=== PATIENT | female | born 1955 | race Caucasian/White ===

== ENCOUNTER → 2020-08-19 13:07 | Outpatient (CLI) | payer OTHER, SELFPAY ==
--- NOTE | ~2020-08-19 | DEXA_ITS ---
Bone Density Report Name: Kayleen Omalley Age: 65 Sex: Female Ethnicity: White Date of : 1955 Indication: postmenopausal; screening for osteoporosis; height loss; Referring Provider: DARLIN, ZEHRA Study: Bone densitometry was performed. Exam Date: August 19, 2020 Accession number: [id number] Bone Density: Region BMD T-score Z-score Classification AP Spine (L1-L4) 1.286 2.2 3.8 Normal Femoral Neck (Left) 0.756 -0.8 0.6 Normal Total Hip (Left) 0.947 0.0 1.2 Normal Femoral Neck (Right) 0.688 -1.5 0.0 Osteopenia Total Hip (Right) 0.903 -0.3 0.8 Normal Total Hip Mean 0.925 -0.2 1.0 Normal World Health Organization criteria for BMD impression classify patients as: Normal (T-score at or above -1.0), Osteopenia (T-score between -1.0 and -2.5), or Osteoporosis (T-score at or below -2.5). 10-year Fracture Risk(1): Major Osteoporotic Fracture 8.0% Hip Fracture 0.7% Reported Risk Factors: [place] (), Neck BMD=0.688, BMI=31.3 (1) FRAX(R) Version 3.08. Fracture probability calculated for an untreated patient. Fracture probability may be lower if the patient has received treatment. Previous Exams: Region Exam Age BMD T-score BMD Change BMD Change Date g/cm2 vs Baseline vs Previous AP Spine(L1-L4) 08/19/2020 65 1.286 2.2 0.081* -0.028* 08/10/2016 61 1.314 2.4 0.108* 0.062* 07/27/2013 58 1.251 1.9 0.046* 0.046* 04/11/2009 53 1.205 1.4 Total Hip(Left) 08/19/2020 65 0.947 0.0 0.049* -0.046* 08/10/2016 61 0.993 0.4 0.095* 0.011 07/27/2013 58 0.982 0.3 0.083* 0.083* 04/11/2009 53 0.898 -0.4 Total Hip(Right) 08/19/2020 65 0.903 -0.3 0.011 -0.051* 08/10/2016 61 0.954 0.1 0.061* 0.028* 07/27/2013 58 0.926 -0.1 0.034* 0.034* 04/11/2009 53 0.893 -0.4 *Denotes significance at 95% confidence level, LSC for AP Spine = 0.022 g/cm2, LSC for Total Hip = 0.027 g/cm2 Clinical Information Provided by Patient: Has used the following medications: Vitamin D Patient maximum height was 65.5 Menopause Age: 57 No regular weight bearing exercise Drinks caffeinated beverages Onset of menses at age 18 Number of children 1 Impression: The patient has low bone mass, based on the Right Femoral Neck T-score. The pa
--- NOTE | ~2020-08-19 | US_ITS ---
EXAMINATION: US transvaginal DATE: 08/19/2020 14:14 INDICATION: Left ovarian cyst in a postmenopausal patient TECHNIQUE: Multiple endovaginal sonographic images of the pelvis were obtained. COMPARISON: 08/17/2019, 08/12/2017, 08/08/2015 FINDINGS: The uterus measures 4.9 x 2.9 x 3.6 cm. The endometrial complex measures 2 mm. The right ov izabela measures 2.1 x 2 x 2 cm and contains a 1.7 cm simple cyst. The left ovary measures 4.6 x 4.6 x 4. 9 cm and contains a 4.2 cm simple cyst, not significantly changed when compared to multiple prior ult rasound examinations. There is normal vascular flow in the ovaries. There is no free fluid in the pel vis. IMPRESSION: 1. Left ovarian cyst without significant change, likely benign. Given its relative stability, decreas ed frequency of follow-up is sometimes considered. Reviewed, dictated and finalized at location A. FLAW DETECTOR OPERATOR IMPRESSION: 1. Left ovarian cyst without significant change, likely benign. Given its relat jose miguel stability, decreased frequency of follow-up is sometimes considered.
--- NOTE | ~2020-08-19 | MM_ITS ---
EXAMINATION: MM screening sandhya BI w maria victoria HISTORY: Screening mammogram TECHNIQUE: Craniocaudal and mediolateral oblique 3-D tomosynthesis images were obtained and synthetic 2-D images were generated. CAD analysis was submitted and interpreted. COMPARISON: 08/17/2019 bilateral digital screening mammogram 08/29/2018 diagnostic right digital mammogram and complete right breast ultrasound 08/14/2018, 08/12/2017 and 08/10/2016 bilateral digital screening mammogram examinations BREAST PARENCHYMAL COMPOSITION: There are scattered areas of fibroglandular density. FINDINGS: There is a biopsy marker on the right; history of prior benign right breast biopsy. Stable mild fibroglandular asymmetry. There is no evidence of suspicious mass, calcification, or arch itectural distortion to suggest malignancy in either breast. There has been no suspicious interval ch kee. IMPRESSION: 1. No mammographic evidence of malignancy. 2. Recommend routine screening mammography in one year. BI-RADS Category 2: Benign finding(s). Reviewed, dictated and finalized at location A. S AND MARKETING ASSOCIATE
== END ==
PROVIDERS: Visit Provider Nurse Practitioner
DX: Z12.31 Encounter for screening mammogram for malignant neoplasm of breast (principal); Z78.0 Asymptomatic menopausal state; N83.209 Unspecified ovarian cyst, unspecified side; N83.202 Unspecified ovarian cyst, left side; M85.851 Other specified disorders of bone density and structure, right thigh
CPT/HCPCS: 76830; 77063; 77067; 77080

== ENCOUNTER → 2021-08-21 12:39 | Outpatient (CLI) | payer OTHER, SELFPAY ==
--- NOTE | ~2021-08-21 | US_ITS ---
EXAMINATION: US transvaginal DATE: 08/21/2021 13:02 INDICATION: Left ovarian cyst follow-up TECHNIQUE: Multiple endovaginal sonographic images of the pelvis were obtained. COMPARISON: 08/19/2020 FINDINGS: The uterus measures 6.1 x 2.8 x 3.5 cm. The endometrial complex measures 4 mm. The right ov izabela measures 2.2 x 3.3 x 3.2 cm and contains a 2.2 cm simple cyst. The left ovary measures 5.1 x 4.8 x 4.6 cm and contains a 4.6 cm simple cyst without significant change. There is normal vascular flow in the ovaries. There is no free fluid in the pelvis. IMPRESSION: 1. Stable ovarian cysts. Reviewed, dictated and finalized at location F. SER ALL AROUND IMPRESSION: 1. Stable ovarian cysts.
--- NOTE | ~2021-08-21 | MM_ITS ---
EXAMINATION: MM screening sandhya BI w maria victoria HISTORY: Screening TECHNIQUE: Craniocaudal and mediolateral oblique 3-D tomosynthesis images were obtained and synthetic 2-D images were generated. CAD analysis was submitted and interpreted. COMPARISON: Comparison to multiple prior studies sequentially, with oldest reviewed study dated 08/12. BREAST PARENCHYMAL COMPOSITION: There are scattered areas of fibroglandular density. FINDINGS: There is no evidence of suspicious mass, calcification, or architectural distortion to sugg est malignancy in either breast. There has been no suspicious interval change. IMPRESSION: 1. No mammographic evidence of malignancy. 2. Recommend routine screening mammography in one year. BI-RADS Category 1: Negative Reviewed, dictated and finalized at location A. ST FIRE CONTROL OFFICER
== END ==
PROVIDERS: PCP Family Medicine; Visit Provider Nurse Practitioner
DX: Z12.31 Encounter for screening mammogram for malignant neoplasm of breast (principal); N83.202 Unspecified ovarian cyst, left side
CPT/HCPCS: 76830; 77063; 77067

== ENCOUNTER → 2022-08-31 13:29 | Outpatient (CLI) | payer MEDICARE, OTHER, SELFPAY ==
--- NOTE | ~2022-08-31 | MM_ITS ---
EXAMINATION: MM screening sandhya BI w maria victoria HISTORY: Screening TECHNIQUE: Craniocaudal and mediolateral oblique 3-D tomosynthesis images were obtained and synthetic 2-D images were generated. CAD analysis was submitted and interpreted. COMPARISON: Comparison to multiple prior studies sequentially, with oldest reviewed study dated 08/14. BREAST PARENCHYMAL COMPOSITION: There are scattered areas of fibroglandular density. FINDINGS: There is no evidence of suspicious mass, calcification, or architectural distortion to sugg est malignancy in either breast. There has been no suspicious interval change. IMPRESSION: 1. No mammographic evidence of malignancy. 2. Recommend routine screening mammography in one year. BI-RADS Category 1: Negative Reviewed, dictated and finalized at location A. LAGE CLERK
== END ==
PROVIDERS: PCP Family Medicine; Visit Provider Nurse Practitioner
DX: Z12.31 Encounter for screening mammogram for malignant neoplasm of breast (principal)
CPT/HCPCS: 77063; 77067

== ENCOUNTER 2022-10-07 11:14 | Emergency (ER) | payer MEDICARE, OTHER, SELFPAY ==
--- NOTE | 2022-10-07 11:15 | ED.URI ---
HPI - URI/Sore Throat General Chief Complaint: Upper Respiratory Infection Stated Complaint: Sinus/Cough Time Seen by Provider: 10/07/22 11:15 Source: patient Mode of arrival: ambulatory Limitations: no limitations History of Present Illness HPI Narrative: Kayleen is a 67-year-old female patient presenting to the clinic today with complaints of sinus congestion and cough x2 weeks. She denies any fever or chills. States she is bringing up a little bit a yellow phlegm with the cough. Denies any shortness of breath or chest pain. No known exposure to anyone with COVID, flu, or strep. MD elicited complaint: cough, rhinorrhea and nasal congestion Related Data Allergies Allergy/AdvReac Type Severity Reaction Status Date / Time zomepirac Allergy Unknown Unknown Verified 11/17/21 06:33 Review of Systems Review of Systems: Pertinent positives per HPI. Patient denies any fever, chills, rash, headache, visual changes, dizziness, cough, shortness of breath, chest pain, palpitations, nausea, vomiting, diarrhea, constipation, abdominal pain, or any urinary issues. [facility] Past Medical History Medical History Encounter for screening for lipoid disorders Essential (primary) hypertension Mixed hyperlipidemia Screening for thyroid disorder Family History Family History Father Hypertension Family history of coronary artery disease Mother Hypertension Family history of coronary artery disease Sibling Hypertension Social History Social History Smoking status: Never smoker Tobacco type: cigarettes Alcohol intake: never Substance use: never Substance use type: does not use Comments At the time of my signature, I reviewed and agree with the nursing past medical, surgical, social, and family history. There is no relevant family history pertinent to the patient complaint. Exam Narrative: General: Well-developed, obese, in no apparent distress Head: Normocephalic, atraumatic Eyes: Pupils equally round and reactive to light bilaterally, EOM intact, sclera and conjunctive clear, no discharge, lids normal Ears: TMs intact and clear, ear canals clear, no drainage, grossly hearing normal. Nose: Nares patent, clear nasal discharge, mild inflammation, no sinus tenderness. Mouth: Oral pharynx without lesions or masses, good dentition, MMM. Postnasal drip Neck: Supple, trachea midline, no enlargement of anterior or posterior cervical nodes, no thyroid masses or goiter palpable. Cardio: Regular rate and rhythm, s1 and s2 normal, no murmur appreciated. Resp: Clear to auscultation bilaterally, no rhonchi, rales, wheezing or rubs Course Course Emergency Course: Portions of this record may have been created with voice recognition software. Level of Care: Express Care Visit Vital Signs Vital signs: Vital Signs Temperature 36.7 C 10/07/22 11:36 Pulse Rate 77 10/07/22 11:36 Respiratory Rate 12 10/07/22 11:36 Blood Pressure 141/78 H 10/07/22 11:36 Pulse Oximetry 95 10/07/22 11:36 Oxygen Delivery Room Air 10/07/22 11:36 Temperature 36.7 C 10/07/22 11:36 Pulse Rate 77 10/07/22 11:36 Respiratory Rate 12 10/07/22 11:36 Blood Pressure 141/78 H 10/07/22 11:36 Pulse Oximetry 95 10/07/22 11:36 Oxygen Delivery Room Air 10/07/22 11:36 Vital signs reviewed MDM - URI/Sore Throat MDM Narrative Medical decision making narrative: At the time of visit patient is resting comfortably on the exam table. Differential Diagnosis Differential diagnosis: Likely sinusitis, viral infection, influenza and pharyngitis Discharge Plan Discharge Clinical Impression: Bronchitis, Acute upper respiratory infection, Post-nasal drip Patient Disposition: Home, Self-Care Condition: Stable Instructions: Antibiotic Fo
[2022-10-07 11:36] VITALS: BP 141/78; PULSE 77; RESP 12; TEMP 36.7; O2SAT 95
== END 2022-10-07 11:38 | disposition home or self-care (01) ==
LOC: EXPCOLL 11:19
PROVIDERS: Emergency Provider Nurse Practitioner Family; PCP Family Medicine
DX: J40 Bronchitis, not specified as acute or chronic (principal); J06.9 Acute upper respiratory infection, unspecified; R09.82 Postnasal drip; I10 Essential (primary) hypertension; E78.2 Mixed hyperlipidemia
CPT/HCPCS: 99213; G0463

== ENCOUNTER 2023-05-31 07:00 | Outpatient (NON) | payer MEDICARE, OTHER, SELFPAY | END 2023-05-31 07:01 | disposition home or self-care (01) | LOC: ANHLAB 06-01 14:14 | PROVIDERS: PCP Family Medicine; Visit Provider Nurse Practitioner | DX: L30.8 Other specified dermatitis (principal) | CPT/HCPCS: 88305 ==

== ENCOUNTER → 2023-06-10 11:24 | Outpatient (CLI) | payer MEDICARE, OTHER, SELFPAY ==
--- NOTE | ~2023-06-10 | US_ITS ---
Pelvic ultrasound. Clinical History: Right ovarian cyst COMPARISON: 08/21/2021 Technique: Realtime transabdominal and transvaginal scanning of the pelvis was performed. Color flow Doppler and Doppler spectral analysis were performed. Findings: The uterus is anteverted. The endometrial stripe has a thickness of 2 mm. No focal mass is identified. There is a 3.5 x 3.0 cm right ovarian cyst, with a thin rind of ovarian tissue splayed around the cys t. There is a 4.9 x 4.3 cm simple left ovarian cyst, with a thin rind of ovarian tissue splayed around t he cyst. No evidence for ovarian torsion. There is no evidence of free fluid in the cul de sac. Impression: 4.9 cm simple left ovarian cyst, similar to prior exam. 3.5 cm simple right ovarian cyst, increased in size from prior exam. Reviewed, dictated and finalized at [facility]. [address] [facility] Impression: 4.9 cm simple left ovarian cyst, similar to prior exam. 3.5 cm simple right ovarian cyst, increased in size from prior exam.
== END ==
PROVIDERS: PCP Nurse Practitioner; Visit Provider Nurse Practitioner
DX: N83.201 Unspecified ovarian cyst, right side (principal); N83.202 Unspecified ovarian cyst, left side
CPT/HCPCS: 76830

== ENCOUNTER 2023-11-09 12:24 | Outpatient (CLI) | payer MEDICARE, SELFPAY ==
--- NOTE | ~2023-11-09 | DEXA_ITS ---
Bone Density Report Name: LISSET MARTÍNEZ Age: 68 Sex: Female Ethnicity: White Date of : 1955 Indication: postmenopausal; screening for osteoporosis; height loss; Referring Provider: DARLIN, ZEHRA Study: Bone densitometry was performed. Exam Date: November 09, 2023 Accession number: [id number] Bone Density: Region BMD T-score Z-score Classification AP Spine (L1, L2) 1.148 1.5 3.3 Normal Femoral Neck (Left) 0.727 -1.1 0.5 Osteopenia Total Hip (Left) 0.943 0.0 1.3 Normal Femoral Neck (Right) 0.719 -1.2 0.4 Osteopenia Total Hip (Right) 0.922 -0.2 1.1 Normal Total Hip Mean 0.933 -0.1 1.2 Normal World Health Organization criteria for BMD impression classify patients as: Normal (T-score at or above -1.0), Osteopenia (T-score between -1.0 and -2.5), or Osteoporosis (T-score at or below -2.5). 10-year Fracture Risk(1): Major Osteoporotic Fracture 8.2% Hip Fracture 0.7% Reported Risk Factors: [place] (), Neck BMD=0.719, BMI=31.8 (1) FRAX(R) Version 3.08. Fracture probability calculated for an untreated patient. Fracture probability may be lower if the patient has received treatment. Previous Exams: Region Exam Age BMD T-score BMD Change BMD Change Date g/cm2 vs Baseline vs Previous AP Spine(L1, L2) 11/09/2023 68 1.148 1.5 0.058* 0.002 08/19/2020 65 1.147 1.5 0.057* 0.001 08/10/2016 61 1.146 1.5 0.056* 0.028* 07/27/2013 58 1.117 1.3 0.027* 0.027* 04/11/2009 53 1.090 1.0 Total Hip(Left) 11/09/2023 68 0.943 0.0 0.045* -0.004 08/19/2020 65 0.947 0.0 0.049* -0.046* 08/10/2016 61 0.993 0.4 0.095* 0.011 07/27/2013 58 0.982 0.3 0.083* 0.083* 04/11/2009 53 0.898 -0.4 Total Hip(Right) 11/09/2023 68 0.922 -0.2 0.030* 0.019 08/19/2020 65 0.903 -0.3 0.011 -0.051* 08/10/2016 61 0.954 0.1 0.061* 0.028* 07/27/2013 58 0.926 -0.1 0.034* 0.034* 04/11/2009 53 0.893 -0.4 *Denotes significance at 95% confidence level, LSC for AP Spine = 0.022 g/cm2, LSC for Total Hip = 0.027 g/cm2 Clinical Information Provided by Patient: Has used the following medications: Vitamin D Patient maximum height was 65.5 Menopause Age: 60 No regular weight bearing exercise Drinks caffeinated beverages Onset of mens
--- NOTE | ~2023-11-09 | MM_ITS ---
EXAMINATION: MM screening sandhya BI w maria victoria HISTORY: Screening mammogram TECHNIQUE: Craniocaudal and mediolateral oblique 3-D tomosynthesis images were obtained and synthetic 2-D images were generated. CAD analysis was submitted and interpreted. COMPARISON: 08/31/2022, 08/21/2021 bilateral screening mammogram examinations BREAST PARENCHYMAL COMPOSITION: There are scattered areas of fibroglandular density. FINDINGS: Biopsy marker on the right; history of prior benign right breast biopsy. There is asymmetry and possible architectural distortion in the upper outer left breast. Diagnostic left mammogram is r ecommended, with ultrasound if required. Otherwise no suspicious mass, architectural distortion, malignant calcification, skin thickening or r etraction or significant new or developing density of either breast is noted. IMPRESSION: 1. Focal asymmetry, upper outer left breast 2. Diagnostic left mammogram is recommended, with ultrasound if required BI-RADS Category 0: Incomplete: Needs additional imaging evaluation. Reviewed, dictated and finalized at location A.
== END 2023-11-09 12:25 ==
PROVIDERS: PCP Nurse Practitioner; Visit Provider Nurse Practitioner
DX: Z12.31 Encounter for screening mammogram for malignant neoplasm of breast (principal); M85.88 Other specified disorders of bone density and structure, other site; R92.8 Other abnormal and inconclusive findings on diagnostic imaging of breast; Z78.0 Asymptomatic menopausal state
CPT/HCPCS: 77063; 77067; 77080

== ENCOUNTER 2023-12-13 09:27 | Outpatient (CLI) | payer MEDICARE, SELFPAY ==
--- NOTE | ~2023-12-13 | MMUS_ITS ---
EXAMINATION: MM diagnostic sandhya LT w maria victoria, US breast LT limited HISTORY: Focal asymmetry reported in the upper outer quadrant of left breast on November 09, 2023 screen ing mammogram TECHNIQUE: Additional 3-D tomosynthesis images of the left breast were performed and synthetic 2-D im ages were generated. CAD analysis was submitted and interpreted. High resolution upper outer quadrant left breast ultrasound was performed. COMPARISON: November 09, 2023, August 31, 2022, August 21, 2021 bilateral screening mammogram examinat ions FINDINGS: MAMMOGRAPHIC FINDINGS: There is return to baseline appearance without apparent significant change compared to 08/21/2021. No suspicious mass or reproducible architectural distortion is noted. ULTRASOUND: 12:00 3 cm from nipple: Well-circumscribed 1.6 x 5.8 x 4.9 mm cyst. No suspicious mass or shadowing or other significant sonographic abnormality is detected in the upper outer quadrant of the left breast. IMPRESSION: 1. Benign finding 2. Routine annual mammographic screening is recommended BI-RADS Category 2: Benign finding(s). Reviewed, dictated and finalized at location A. IMPRESSION: 1. Benign finding 2. Routine annual mammographic screening is recommended BI-RADS Category 2: Benign finding(s).
== END 2023-12-13 09:28 ==
LOC: MICIMG 09:28
PROVIDERS: PCP Obstetrics & Gynecology Gynecology; Visit Provider Obstetrics & Gynecology Gynecology
DX: R92.8 Other abnormal and inconclusive findings on diagnostic imaging of breast (principal)
CPT/HCPCS: 76642; 77061; 77065; G0279

== ENCOUNTER 2024-11-13 14:06 | Outpatient (CLI) | payer MEDICARE, SELFPAY ==
--- NOTE | ~2024-11-13 | MM_ITS ---
EXAMINATION: MM screening sandhya BI w maria victoria HISTORY: Screening TECHNIQUE: Craniocaudal and mediolateral oblique 3-D tomosynthesis images were obtained and synthetic 2-D images were generated. CAD analysis was submitted and interpreted. COMPARISON: Comparison to multiple prior studies sequentially, with oldest reviewed study dated 08/17. BREAST PARENCHYMAL COMPOSITION: Not dense: There are scattered areas of fibroglandular density. FINDINGS: There is no evidence of suspicious mass, calcification, or architectural distortion to sugg est malignancy in either breast. There has been no suspicious interval change. IMPRESSION: 1. No mammographic evidence of malignancy. 2. Recommend routine screening mammography in one year. BI-RADS Category 1: Negative Reviewed, dictated and finalized at location B.
--- NOTE | ~2024-11-13 | US_ITS ---
Pelvic ultrasound. Clinical History: Ovarian cyst Technique: Realtime transabdominal and transvaginal scanning of the pelvis was performed. Color flow Doppler and Doppler spectral analysis were performed. Findings: The uterus is anteverted. The endometrial stripe has a thickness of 3 mm. No focal mass is identified. The right ovary measures 5.2 x 4.6 x 5.1 cm. Simple right ovarian cyst measures 4.9 cm in diameter. A dditional simple right adnexal cyst measures 3.7 cm in diameter The left ovary measures 5.4 x 5.4 x 5.6 cm. Simple left ovarian cyst measures 4.9 cm in diameter. There is no evidence of free fluid in the cul de sac. Impression: Simple bilateral ovarian cysts, measuring up to 4.9 cm bilaterally, with additional 3.7 cm right adne xal cyst. Reviewed, dictated and finalized at [facility]. Impression: Simple bilateral ovarian cysts, measuring up to 4.9 cm bilaterally, with additi onal 3.7 cm right adnexal cyst.
== END 2024-11-13 14:07 | disposition home or self-care (01) ==
LOC: MICIMG 14:08
PROVIDERS: PCP Family Medicine; Visit Provider Nurse Practitioner
DX: N83.201 Unspecified ovarian cyst, right side (principal); N83.202 Unspecified ovarian cyst, left side; Z12.31 Encounter for screening mammogram for malignant neoplasm of breast
CPT/HCPCS: 76830; 77063; 77067

== ENCOUNTER 2025-07-01 14:57 | Outpatient (CLI) | payer MEDICARE, SELFPAY ==
--- NOTE | ~2025-07-01 | US_ITS ---
EXAMINATION: US transvaginal, 07/01/2025 15:01 STUDY SPECIALIST HISTORY: Ovarian cysts Comparison: Comparison 11/13/2024. Technique: Boyer-scale and color Doppler images were obtained. Findings: Uterus: Uterus anteverted 3.7 x 3.1 x 3.7 cm. . Endometrium 3 mm. Right Ovary:Right ovary 7.1 x 5.6 x 6.1 cm, slightly complex cystic lesion 6.2 x 5.4 x 5.5 cm, adjacent slightly complex cyst with thickened wall 4.6 x 5.4 cm. Left Ovary: Left ovary 5.9 x 5.1 x 5.6 cm with complex cystic lesion 5.5 x 5.1 cm. Free Fluid: None Impression: Bilateral complex cystic ovarian lesions which have increased in size compared to the previous exam. Cystic ovarian neoplasm should be considered. Contrast- enhanced MRI is recommended Reviewed, dictated and finalized at location P. Y SPECIALIST Impression: Bilateral complex cystic ovarian lesions which have increased in size compared to the previous exam. Cystic ovarian neoplasm should be considered. Contrast-en hanced MRI is recommended
== END 2025-07-01 14:58 | disposition home or self-care (01) ==
LOC: MICIMG 14:59
PROVIDERS: PCP Family Medicine; Visit Provider Nurse Practitioner
DX: N83.201 Unspecified ovarian cyst, right side (principal); N83.202 Unspecified ovarian cyst, left side
CPT/HCPCS: 76830